=== PATIENT | female | born 1980 | race Caucasian/White ===

== ENCOUNTER 2023-12-20 14:15 | Emergency (ER) | payer OTHER, SELFPAY ==
--- NOTE | ~2023-12-20 | XR_ITS ---
EXAMINATION: XR ABDOMEN KUB CLINICAL INDICATION: Nausea and vomiting. Distention. COMPARISON: None available. TECHNIQUE: 3 radiographs of the abdomen. FINDINGS: The bowel gas pattern is normal with no evidence of ileus or obstruction. No unusual soft tissue calcifications are noted. The bones are unremarkable. XR/XR KUB IMPRESSION: The bowel gas pattern is normal with no evidence of ileus or obstruction.
[2023-12-20 14:22] VITALS: BP 147/86; PULSE 89; RESP 20; TEMP 36.5; O2SAT 99; BMI 34.4
--- NOTE | 2023-12-20 14:23 | ED_ITS ---
HPI - General Adult General Chief complaint: Abdominal Pain Stated complaint: distended abd, vomiting , cant keep food down Time Seen by Provider: 12/20/23 16:02 Source: patient Mode of arrival: ambulatory Limitations: no limitations History of Present Illness ED Provider: Carlotta Campos PA-C HPI narrative: 43 yo female with history of obesity, pre-DM previously on Trulicity and Monjero, anxiety who presents to the ER for evaluation of recurrent episodes nausea, vomiting, and abdominal distention. She reports these episodes started in August and have been occurring monthly. In August she stopped taking the Mounjaro because it was thought that they were contributing to delayed gastric emptying. She reports previously being seen at [place] [id number] scans twice that were normal. Her PCP put her on a PPI with no improvement. She just saw Dr. العلي from GI last Saturday. She reports last night at midnight she developed acute onset of nausea and recurrent vomiting, unable to tolerate p.o.. She states her abdomen got more distended than usual. She is also having episodes of loose watery stools with food particles in it. No bleeding. She denies any fever or chills, no urinary symptoms. She states she was unable to tolerate any p.o. today and Dr. Perez's office advised her to come to the ER. She reports previously having been on Zofran and Reglan with no relief. She states Reglan made her very anxious with palpitations. She reports omeprazole also gave her anxiety and palpitations and she stopped taking it. Today she tried Mylanta with little relief. Today she reports some pain in her upper abdomen and her back, she thinks is due to recurrent vomiting and retching. MD complaint: Nausea, vomiting, abdominal distention Onset (ago): hour(s) Location: abdomen Radiation: non-radiation Severity: moderate Severity scale (1-10): 4 Quality: aching Pain Consistency: intermittent Relieving factors: none Exacerbating factors: eating Associated symptoms: loss of appetite, malaise and nausea/vomiting Treatments prior to arrival: none Related Data Previous Rx's ?Medication ?Instructions ?Recorded famotidine 20 mg tablet (Pepcid AC) 20 mg PO DAILY #30 tabs 12/20/23 Allergies Allergy/AdvReac Type Severity Reaction Status Date / Time acetaminophen [From Percocet] Allergy Vomiting Verified 12/20/23 14:29 clonazepam [From Klonopin] Allergy Palpitation Verified 12/20/23 14:29 s codeine Allergy Dizziness Verified 12/20/23 14:29 ethinyl estradiol Allergy Palpitation Verified 12/20/23 14:29 [From Necon 0.5/35 (21)] s hydromorphone [From Dilaudid] Allergy Palpitation Verified 12/20/23 14:31 s hyoscyamine [From Levbid] Allergy Anaphylaxis Verified 12/20/23 14:29 morphine Allergy Dizziness Verified 12/20/23 14:29 norethindrone Allergy Palpitation Verified 12/20/23 14:29 [From Necon 0.5/35 (21)] s oxycodone [From Percocet] Allergy Vomiting Verified 12/20/23 14:29 rofecoxib [From Vioxx] Allergy Anaphylaxis Verified 12/20/23 14:29 Sulfa (Sulfonamide Allergy Hives Verified 12/20/23 14:29 Antibiotics) valdecoxib [From Bextra] Allergy Anaphylaxis Verified 12/20/23 14:29 Review of Systems 2 Review of Systems: Yes all other systems are reviewed and are negative PMFSH Social History Social History Advance Directives: No Advance Directives Information Provided: No Do you have a plan to hurt others: No Plan Physical Exam ED Vital Signs: Vital Signs - 24 hr 12/20/23 14:22 12/20/23 16:10 12/20/23 18:10 Temperature 97.7 F 98.4 F 98.1 F Pulse Rate 89 78 74 Respiratory Rate 20 15 14 Blood Pressure 147/86 H 141/87 H 139/88 Pulse Oximetry 99 99 99 Oxygen Delivery Method Room Air Room Air Room Air BMI result Body Mass Index 34.4 Appearance: Alert. Oriented X3. No acute distress. Head: normocephalic, atraumatic. Eyes: Pupils equal, round and reactive to light. ENT: Pharynx normal. No tonsillar swelling or exudate. Neck: Normal inspection. Neck supple. CVS: Normal heart rate and rhythm. Pulses normal. Respiratory: No respiratory distress. Breath sounds normal. Abdomen: Softly distended, and nontender. decreased but present BS x4 Skin: Skin warm and dry. Normal skin color. Normal skin turgor. No rashes. Extremities: No lower extremity edema. No joint swelling. Neuro/psych: Oriented X 3. No motor deficit. No sensory deficit. CN II-XII intact. Normal speech and cognition. Course Course Course Narrative: This is a Rapid Medical Examination (RME) performed by Jorge A Capps PA-C in triage. Full HPI, ROS, assessment and treatment plan per primary provider in the Main ED. 43 yo female hx of DM, endometriosis, here for eval of intermittent nausea, vomiting, diarrhea, and abdominal bloating x5 months. no known sick contacts. denies marijuana use. follows with dr. العلي who reported concern she has abdominal paralysis s/p mounjaro injections. she has not take mounjaro since august. she has been seen at [facility] for this with unremarkable work up. abdomen soft, ND/NT, no rebound or guarding. normoactive bs x4. Plan: labs, UA, u preg +/- imaging per primary provider Medications Administered Discontinued Medications Generic Name Dose Route Start Last Admin Trade Name Freq PRN Reason Stop Dose Admin Sodium Chloride 1,000 mls @ 999 mls/hr 12/20/23 16:45 12/20/23 18:26 Ns IVCONT 12/20/23 17:45 Infused .Q1H1M DIEGO Infusion Promethazine HCl 6.25 mg 12/20/23 16:33 12/20/23 17:55 Promethazine Hcl 25 Mg/Ml Vial IM 12/20/23 16:34 Not Given ONCE ONE Medical Decision Making Medical Decision Making MDM Narrative: 43-year-old female with history of obesity and prediabetes presents to the ER for evaluation of recurrent episodes of nausea, vomiting, abdominal distention. Unable to tolerate p.o. since last night at 17:00. She denies any associated abdominal pain. On arrival to the ER her vital signs are stable. Her abdominal exam is benign, low clinical suspicion for obstruction given that she has positive bowel sounds, is having bowel movements. Etiology of her symptoms seems to be functional. Her lab workup was reviewed and is unremarkable. UA negative for infection and . Spoke with Dr. العلي from GI - he agrees with low clinical suspicion for obstruction and holding off on CT scan at this time. Will check simple KUB. Will place IV, give IV fluids and antiemetics. KUB without evidence of obstruction. Patient able to tolerate p.o.. She refused the IM Phenergan and has been tolerating p.o. without it. At this time patient is stable for discharge home with plan to follow-up with her GI provider. Will plan to start Pepcid as she states she is unable to tolerate omeprazole. Differential Diagnosis Differential Diagnoses: The differential diagnosis associated with the presentation includes Gastroparesis, slow gut motility, low clinical suspicion for obstruction Admission/Observation Consideration of admission/observation: Escalation of care including admission/observation considered Consult Healthcare Provider Management of the patient was discussed with: Trust Manager Assistant Dr. العلي Lab Data MDM Lab Attestation statement: I reviewed the patient's lab results. Normal CBC, no major metabolic derangements 12/20/23 14:52 12/20/23 14:52 Labs: Lab Results 12/20/23 12/20/23 Range/Units 14:51 14:52 WBC 9.5 (4.8-10.8) X10*3/uL RBC 4.85 (4.20-5.50) X10*6/uL Hgb 14.8 (12.0-16.0) g/dl Hct 43.0 (37.0-47.0) % MCV 88.7 (80.0-98.0) fL MCH 30.5 (27.0-33.0) pg MCHC 34.4 (31.0-35.0) g/dl RDW 12.4 (11.0-16.0) % Plt Count 305 (160-400) X10*3/uL MPV 10.7 (9.4-12.3) fL Immature Gran % (Auto) 0.2 (0.0-0.4) % Neut % (Auto) 73.4 H (45-73) % Lymph % (Auto) 19.3 L (20-40) % Reagan % (Auto) 6.8 (2-11) % Eos % (Auto) 0.1 (0-4) % Baso % (Auto) 0.2 (0-2) % Lymph # (Auto) 1.8 (1.2-4.9) X10*3/uL Reagan # (Auto) 0.6 (0.1-1.2) X10*3/uL Eos # (Auto) 0.0 (0.0-0.4) X10*3/uL Baso # (Auto) 0.0 (0.0-0.2) X10*3/uL Abs Immat Gran (auto) 0.02 (0.00-0.03) X10*3/uL Absolute Neuts (auto) 7.0 (2.0-8.3) x10*3/uL Absolute Nucleated RBC 0.000 (0.0-0.012) X10*3/uL Nucleated RBC % (auto) 0.0 (0.0-0.2) /100WBC Sodium 139 (135-145) mmol/L Potassium 3.5 (3.3-5.1) mmol/L Chloride 103 (96-108) mmol/L Carbon Dioxide 27 (22-29) mmol/L Anion Gap 13 (12-20) BUN 9 (9-16) mg/dL Creatinine 0.75 (0.5-1.4) mg/dL Estim Creat Clear Calc 91.4 Estimated GFR > 60 Random Glucose 116 H (60-115) mg/dL Calcium 9.6 (8.4-10.2) mg/dL Magnesium 2.1 (1.6-2.6) mg/dL Total Bilirubin 0.8 (0.0-1.0) mg/dL AST 20 (5-31) U/L ALT 19 (0-31) U/L Alkaline Phosphatase 69 (39-117) U/L Total Protein 8.0 (6.5-8.0) g/dL Albumin 4.7 (3.5-5.0) g/dL Lipase 22 (8-78) U/L Urine Color Dark Yellow Urine Appearance Clear Urine pH 6.0 (5.0-9.0) Ur Specific [place] >= 1.030 H (1.005-1.025) Urine Protein 30 (1+) H (Neg-Trace) mg/dL Urine Glucose (UA) Negative (Negative) mg/dL Urine Ketones 40 (Negative) mg/dL Urine Blood Small (1+) H (Negative) Urine Nitrite Negative (Negative) Ur Leukocyte Esterase Negative (Negative) Urine RBC 11-20 H (0-2) /HPF Urine WBC 0-5 (0-5) /HPF Ur Squamous Epith Cells 6-10 (0-2) /HPF Urine Bacteria None Seen (None Seen) Hyaline Casts 0-2 (0-2) /LPF Urine Test NEGATIVE (NEGATIVE) Independent Interpretation I performed an independent interpretation of an: Plain X-Ray Interpretation: no air-fluid levels to suggest obstruction, agree with radiology read Radiology Impression Discussion of test interpretation with radiology: I have reviewed the radiologist's reading. Radiologist Impression: EXAMINATION: XR ABDOMEN KUB CLINICAL INDICATION: Nausea and vomiting. Distention. COMPARISON: None available. TECHNIQUE: 3 radiographs of the abdomen. FINDINGS: The bowel gas pattern is normal with no evidence of ileus or obstruction. No unusual soft tissue calcifications are noted. The bones are unremarkable. XR/XR KUB IMPRESSION: The bowel gas pattern is normal with no evidence of ileus or obstruction. Tests considered The following testing was considered but not selected: CT scan of the abdomen was considered however she had [address] scans that were normal at [facility]. Prescription Management I considered prescription management with: Other (Antiemetic, a promotility) Chronic Conditions Patient?s care impacted by: Other (Obesity) Discharge Plan Discharge Clinical Impression: Nausea & vomiting Qualifiers: Vomiting type: unspecified Qualified Code(s): R11.2 - Nausea with vomiting, unspecified Patient Disposition: Home, Self-Care Instructions: Acute Nausea and Vomiting (ED) Additional Instructions: Your lab workup in urinalysis today were unremarkable. Dr. العلي recommends adding an antacid. Take the prescribed antacid medication as directed. Recommend small frequent meals with a bland diet. Follow-up with GI for further testing. If you develop new or worsening symptoms call 911 or come back to the ER for further evaluation. Prescriptions: New famotidine [Pepcid AC] 20 mg tablet 20 mg PO DAILY Qty: 30 0RF Referrals: [facility] [Provider Group] Mel Christiansen PA [Primary Care Provider] - Print Language: Sudanese
[2023-12-20 15:00] LABS: MANUAL DIFF FLAG NO
[2023-12-20 15:04] LABS: Appearance Urine Clear; Color Urine Dark Yellow; Glucose Urine UA Negative (Negative); Leukocyte Esterase Urine Negative (Negative); Nitrite Urine Negative (Negative); Specific Gravity - Urine >= 1.030 (1.005-1.025); UMIC TRIGGER UACC YES; Urine Blood Small (1+) (Negative); Urine Ketones 40 mg/dL (Negative); Urine Protein 30 (1+) mg/dL (Neg-Trace)
[2023-12-20 15:04] LABS: Basophils Percent Auto 0.2 % (0-2); Eosinophils Percent Auto 0.1 % (0-4); Hemoglobin 14.8 g/dl (12.0-16.0); Imm Gran Abs Auto 0.02 X10*3/uL (0.00-0.03); Imm Gran Pct Auto 0.2 % (0.0-0.4); Lymphocytes Absolute Auto 1.8 X10*3/uL (1.2-4.9); Lymphocytes Percent Auto 19.3 % (20-40); Mean Corpuscular HGB Conc 34.4 g/dl (31.0-35.0); Mean Corpuscular Hemoglobin 30.5 pg (27.0-33.0); Mean Corpuscular Volume 88.7 fL (80.0-98.0); Mean Platelet Volume 10.7 fL (9.4-12.3); Monocytes Absolute Auto 0.6 X10*3/uL (0.1-1.2); Monocytes Percent Auto 6.8 % (2-11); Neutrophils Percent Auto 73.4 % (45-73); Platelet Count 305 X10*3/uL (160-400); Red Blood Count 4.85 X10*6/uL (4.20-5.50); Red Cell Distribution Width 12.4 % (11.0-16.0); White Blood Count 9.5 X10*3/uL (4.8-10.8)
[2023-12-20 15:06] LABS: UPreg QC Valid YES; Urine Pregnancy NEGATIVE (NEGATIVE)
[2023-12-20 15:09] LABS: Bacteria Urine None Seen (None Seen); Hyaline Casts Urine 0-2 /LPF (0-2); WBC Urine 0-5 /HPF (0-5)
[2023-12-20 15:23] LABS: Alanine Aminotransferase 19 U/L (0-31); Albumin Level 4.7 g/dL (3.5-5.0); Alkaline Phosphatase 69 U/L (39-117); Anion Gap 13 (12-20); Aspartate Amino Transferase 20 U/L (5-31); Bilirubin Total 0.8 mg/dL (0.0-1.0); Blood Urea Nitrogen 9 mg/dL (9-16); Calcium 9.6 mg/dL (8.4-10.2); Carbon Dioxide 27 mmol/L (22-29); Chloride 103 mmol/L (96-108); Creatinine Clr Calc Pharmacy 91.4; Estimated Glomerular Filt Rate > 60; Glucose Random 116 mg/dL (60-115); Lipase 22 U/L (8-78); Magnesium 2.1 mg/dL (1.6-2.6); Potassium 3.5 mmol/L (3.3-5.1); Sodium 139 mmol/L (135-145)
[2023-12-20 16:10] VITALS: BP 141/87; PULSE 78; RESP 15; TEMP 36.9; O2SAT 99
[2023-12-20] MEDS: 0.9 % Sodium Chloride 1,000 ML 999 ML IVCONT (17:15)
--- NOTE | 2023-12-20 17:55 | PC.NURSE ---
patient refusing nausea medication at this time
[2023-12-20 18:10] VITALS: BP 139/88; PULSE 74; RESP 14; TEMP 36.7; O2SAT 99
--- NOTE | 2023-12-20 18:22 | PC.NURSE ---
attempting to PO challenge patient at this time with crackers and water
[2023-12-20 20:32] VITALS: BP 139/88; PULSE 74; RESP 14; TEMP 36.7
== END 2023-12-20 20:36 | disposition home or self-care (01) ==
PROVIDERS: Physician Assistant Medical; Emergency Provider Emergency Medicine Emergency Medical Services; PCP Physician Assistant
DX: R11.2 Nausea with vomiting, unspecified (principal); R73.03 Prediabetes
CPT/HCPCS: 36415; 74018; 80053; 81001; 81003; 81025; 83690; 83735; 85025; 96360; 99284

== ENCOUNTER 2023-12-26 07:31 | Outpatient (REF) | payer OTHER, SELFPAY ==
--- NOTE | ~2023-12-26 | FL_ITS ---
EXAMINATION: XR FLUOROSCOPY UPPER GI WITH AIR CLINICAL INFORMATION: Abdominal pain COMPARISON: None TECHNIQUE: Fluoroscopic air contrast upper GI examination was performed utilizing standard techniques with thin and thick barium and effervescent granules. Numerous spot images were obtained. FINDINGS: Dual and single contrast images of the esophagus demonstrate normal caliber, contour, and mucosal pattern. No evidence of stricture, mass, or ulcerations identified. Esophageal peristalsis is mildly disorganized. A small type I hiatal hernia is present. No significant gastroesophageal reflux was seen during the course of the examination and on reflux views. Dual contrast and single contrast images of the stomach demonstrated normal contour and mucosal pattern without evidence of mass, ulceration, or other abnormality. Poor coating of the posterior wall/lesser curvature is mildly limiting. Contrast freely passed into the gastric antrum and duodenal bulb without delay. Single and air-contrast images of the duodenal bulb demonstrate no abnormality. The duodenal sweep has a normal appearance, course, and mucosal fold appearance. SMALL BOWEL: Metal Solderer view demonstrates a normal/nonspecific bowel gas pattern. Lung bases are clear. Minimal elevation of the right hemidiaphragm is noted. Calcified granuloma is present in the costophrenic sulcus of the right lower lobe. Surgical clips seen overlying the right medial iliac bone. No organomegaly. No abnormalities in the bony structures or joints. The imaged small bowel has a normal caliber. No strictures or masses are present. No malrotation. 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 There is rapid transit of the barium column, in which contrast observed in the right colon in less than 10 minutes of the examination. Surgical clip abutting the cecum is likely related to prior appendectomy. Terminal ileum demonstrates no abnormality. FLUOROSCOPY TIME: 4 minutes 9 seconds Number of Spot Images: 14 Number of Cine: 12 DOSE AREA PRODUCT: [id number] uGy-m2 (microgray-meter squared) FL/FL upper GI w air w SBFT IMPRESSION: 1. Mildly disorganized esophageal peristalsis 2. Small type I hiatal hernia 3. Rapid transit of the barium column, which contrast is observed in the right colon in less than 10 minutes. The differential for this is broad, however, includes cathartics, IBS, hypersecretory states or malabsorption disorders. 4. Several proximal jejunal diverticula. This procedure was performed by Calixto Bonilla PA-C, and supervised by Dr. Young
== END 2023-12-26 07:32 | disposition home or self-care (01) ==
LOC: HO.XRAY 07:31
PROVIDERS: PCP Physician Assistant; Visit Provider Internal Medicine Gastroenterology
DX: R10.84 Generalized abdominal pain (principal)
CPT/HCPCS: 74246; 74248

== ENCOUNTER → 2023-12-26 07:34 | Outpatient (BNV) | payer OTHER, SELFPAY | PROVIDERS: PCP Physician Assistant; Visit Provider Physician Assistant Surgical | DX: R10.84 Generalized abdominal pain (principal) | CPT/HCPCS: 74246; 74248 ==

== ENCOUNTER 2024-01-09 07:03 | Emergency (ER) | payer OTHER, SELFPAY ==
--- NOTE | ~2024-01-09 | CT_ITS ---
EXAMINATION: CT ABDOMEN AND PELVIS WITH CONTRAST CLINICAL INFORMATION: Lower abdominal pain with diarrhea COMPARISON: Upper GI 12/26/2023, KUB 12/19/2020 TECHNIQUE: Multidetector volumetric images were obtained from the superior aspect of the liver through the pubic symphysis following administration 85 mL of Omnipaque 350 intravenous contrast. Sagittal and coronal reformatted images were obtained on the technologist's workstation. Oral contrast: No This CT examination was performed using dose optimization techniques as appropriate, variously including the following: *Automated exposure control *Adjustment of mA and/or kV according to patient size (this includes techniques or standardized protocols for targeted exams where dose is matched to indication/reason for exam; i.e. extremities or head) *Use of iterative reconstruction technique DLP: 560 mGy-cm FINDINGS: LUNG BASES: The visualized lung bases are unremarkable. LIVER, GALLBLADDER, AND BILIARY TREE: The liver is normal in size, shape, and attenuation. No focal hepatic lesion or biliary ductal dilatation is present. The gallbladder is unremarkable with no evidence of radiopaque gallstones, gallbladder wall thickening, or obvious pericholecystic inflammatory changes. PANCREAS: Unremarkable. SPLEEN: Unremarkable. ADRENAL GLANDS: Unremarkable. KIDNEYS AND URETERS: The kidneys are normal in size, shape, and attenuation. No hydronephrosis, hydroureter, or calculi seen. No perinephric stranding. BLADDER: The bladder is nearly empty with a symmetrically thickened wall. GASTROINTESTINAL TRACT: The small and large bowel are unremarkable. The appendix is no longer present. ABDOMINAL WALL: Small periumbilical hernia seen containing only fat. LYMPH NODES: No retroperitoneal lymphadenopathy. VASCULAR: Unremarkable. PELVIC VISCERA: The uterus is not seen. An abnormal adnexal mass is not detected. No free intraperitoneal fluid is present. OSSEOUS STRUCTURES: Unremarkable. Mild anterior wedge fracture of T11. CT/CT abdomen pelvis w IV con IMPRESSION: A cause for the patient's lower abdominal pain and diarrhea has not been found. Incidental findings as described above. Fleischner guidelines were followed.
[2024-01-09 07:12] VITALS: BP 141/81; PULSE 69; RESP 16; TEMP 36.1; O2SAT 98; BMI 34.4
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
[2024-01-09 07:42] LABS: MANUAL DIFF FLAG NO
[2024-01-09 07:44] LABS: Basophils Percent Auto 0.2 % (0-2); Eosinophils Percent Auto 0.2 % (0-4); Hematocrit 44.9 % (37.0-47.0); Hemoglobin 15.4 g/dl (12.0-16.0); Imm Gran Abs Auto 0.03 X10*3/uL (0.00-0.03); Imm Gran Pct Auto 0.3 % (0.0-0.4); Lymphocytes Absolute Auto 1.6 X10*3/uL (1.2-4.9); Lymphocytes Percent Auto 16.7 % (20-40); Mean Corpuscular HGB Conc 34.3 g/dl (31.0-35.0); Mean Corpuscular Hemoglobin 30.3 pg (27.0-33.0); Mean Corpuscular Volume 88.2 fL (80.0-98.0); Mean Platelet Volume 10.4 fL (9.4-12.3); Monocytes Absolute Auto 0.6 X10*3/uL (0.1-1.2); Monocytes Percent Auto 6.3 % (2-11); Neutrophils Absolute Auto 7.5 x10*3/uL (2.0-8.3); Neutrophils Percent Auto 76.3 % (45-73); Platelet Count 348 X10*3/uL (160-400); Red Blood Count 5.09 X10*6/uL (4.20-5.50); White Blood Count 9.8 X10*3/uL (4.8-10.8)
[2024-01-09 08:03] LABS: Alanine Aminotransferase 22 U/L (0-31); Albumin Level 4.9 g/dL (3.5-5.0); Alkaline Phosphatase 76 U/L (39-117); Anion Gap 12 (12-20); Aspartate Amino Transferase 20 U/L (5-31); Bilirubin Total 0.7 mg/dL (0.0-1.0); Blood Urea Nitrogen 9 mg/dL (9-16); Calcium 9.6 mg/dL (8.4-10.2); Carbon Dioxide 26 mmol/L (22-29); Chloride 106 mmol/L (96-108); Creatinine Clr Calc Pharmacy 87.8; Estimated Glomerular Filt Rate > 60; Glucose Random 122 mg/dL (60-115); Lipase 31 U/L (8-78); Magnesium 2.2 mg/dL (1.6-2.6); Potassium 4.1 mmol/L (3.3-5.1); Sodium 140 mmol/L (135-145); Total Protein 8.4 g/dL (6.5-8.0)
[2024-01-09 08:13] LABS: HCG Quantitative < 2 mIU/mL
[2024-01-09 08:57] VITALS: BP 148/84; PULSE 67; RESP 14; TEMP 36.6; O2SAT 100
[2024-01-09 09:05] LABS: Appearance Urine Clear; Color Urine Yellow; Glucose Urine UA Negative (Negative); Leukocyte Esterase Urine Negative (Negative); Nitrite Urine Negative (Negative); PH 6.5 (5.0-9.0); Specific Gravity - Urine 1.015 (1.005-1.025); UMIC TRIGGER UACC YES; Urine Blood Small (1+) (Negative); Urine Ketones Negative (Negative); Urine Protein Negative (Neg-Trace)
[2024-01-09 09:11] LABS: Bacteria Urine None Seen (None Seen); Hyaline Casts Urine 0-2 /LPF (0-2); Squamous Epithelial Cell Urine 0-2 /HPF (0-2); WBC Urine 0-5 /HPF (0-5)
[2024-01-09] MEDS: iohexoL 350 MG/ML 100 ML INFUS..BTL 85 ML IV (09:13)
[2024-01-09 10:25] VITALS: BP 152/87; PULSE 88; RESP 18; TEMP 36.6; O2SAT 98
== END 2024-01-09 10:26 | disposition home or self-care (01) ==
PROVIDERS: Emergency Provider Emergency Medicine; PCP Physician Assistant
DX: R10.84 Generalized abdominal pain (principal); R11.2 Nausea with vomiting, unspecified; R19.7 Diarrhea, unspecified; K44.9 Diaphragmatic hernia without obstruction or gangrene; R10.33 Periumbilical pain
CPT/HCPCS: 36415; 74177; 80053; 81001; 83690; 83735; 84702; 85025; 99284; Q9967

== ENCOUNTER 2024-01-10 09:00 | Outpatient (REF) | payer OTHER, SELFPAY ==
[2024-01-18 20:53] LABS: Calprotectin, Fecal 86 mcg/g
== END 2024-01-10 09:01 | disposition home or self-care (01) ==
LOC: HO.LNP 09:00
PROVIDERS: Visit Provider Internal Medicine Gastroenterology
DX: R19.8 Other specified symptoms and signs involving the digestive system and abdomen (principal)
CPT/HCPCS: 83993